=== PATIENT | male | born 1965 | race Caucasian/White ===

== ENCOUNTER 2016-11-09 20:22 | Emergency (ER) | payer MEDICAID ==
[2016-11-09] MEDS ORDERED: SODIUM CHLORIDE 0.9% 1,000 ML IV STA (21:10)
[2016-11-09] MEDS ORDERED: LORazepam 2 MG/ML SYRINGE IVP STA (21:10)
[2016-11-09] MEDS ORDERED: ONDANSETRON 4 MG/2 ML VIAL IVP STA (21:10)
[2016-11-09] MEDS ORDERED: ONDANSETRON 4 MG/2 ML VIAL ONE (21:28)
[2016-11-09] MEDS ORDERED: LORazepam 2 MG/ML SYRINGE ONE (21:28)
[2016-11-09] MEDS ORDERED: ONDANSETRON ODT 4 MG Prepack 2 TL STA (23:17)
[2016-11-09] MEDS ORDERED: ONDANSETRON ODT 4 MG Prepack 2 TL ONE (23:23)
== END 2016-11-09 23:39 | disposition home or self-care (01) ==
DX: J40 Bronchitis, not specified as acute or chronic (principal); R42 Dizziness and giddiness; I10 Essential (primary) hypertension; Z87.891 Personal history of nicotine dependence
CPT/HCPCS: 36415; 71020; 80053; 83690; 84484; 85025; 93005; 93010; 96374; 96375; 99284; J2060

== ENCOUNTER 2016-11-10 22:10 | Emergency (ER) | payer MEDICAID ==
[2016-11-11] MEDS ORDERED: SODIUM CHLORIDE 0.9% 1,000 ML IV ONE ×2 (01:28→03:25)
[2016-11-11] MEDS ORDERED: DEXAMETHASONE 10 MG/ML VIAL IVP STA (01:28)
[2016-11-11] MEDS ORDERED: cefTRIAXone 1 GM in SODIUM CHLORIDE 0.9% MINIBAG 100 ML IV STA (01:28)
[2016-11-11] MEDS ORDERED: IPRATROPIUM/ALBUTEROL 3 ML NEB INH STA (01:34)
[2016-11-11] MEDS ORDERED: DEXAMETHASONE 10 MG/ML VIAL ONE (01:51)
[2016-11-11] MEDS ORDERED: cefTRIAXone 1 GM VIAL ONE (01:51)
[2016-11-11] MEDS ORDERED: IPRATROPIUM/ALBUTEROL 3 ML NEB INH ONE (02:10)
[2016-11-11] MEDS ORDERED: POTASSIUM BICARB 25 MEQ TABLET PO STA (03:20)
[2016-11-11] MEDS ORDERED: POTASSIUM BICARB 25 MEQ TABLET PO ONE (03:45)
== END 2016-11-11 05:05 | disposition home or self-care (01) ==
DX: E86.0 Dehydration (principal); H66.002 Acute suppurative otitis media without spontaneous rupture of ear drum, left ear; I10 Essential (primary) hypertension; F17.200 Nicotine dependence, unspecified, uncomplicated
CPT/HCPCS: 36415; 80053; 81003; 83690; 84484; 85025; 94640; 96365; 96375; 99284; A9270; J7620

== ENCOUNTER 2018-02-20 17:14 | Emergency (ER) | payer MEDICAID ==
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
[2018-02-20] MEDS ORDERED: BACITRACIN OINT TOP ONE (18:27)
[2018-02-20] MEDS ORDERED: BACITRACIN OINT TOP STA (18:59)
[2018-02-20 19:08] VITALS: BP 164/84
== END 2018-02-20 19:06 | disposition home or self-care (01) ==
LOC: ED 17:14
DX: S01.81XA Laceration without foreign body of other part of head, initial encounter (principal); S40.212A Abrasion of left shoulder, initial encounter; S50.312A Abrasion of left elbow, initial encounter; S80.212A Abrasion, left knee, initial encounter; W05.1XXA Fall from non-moving nonmotorized scooter, initial encounter; Y92.410 Unspecified street and highway as the place of occurrence of the external cause; I10 Essential (primary) hypertension; F17.200 Nicotine dependence, unspecified, uncomplicated
CPT/HCPCS: 12011; 99283; A9270

== ENCOUNTER 2018-06-04 20:30 | Emergency (ER) | payer MEDICAID ==
--- NOTE | 2018-06-04 21:39 | ED Physician Documentation ---
PD HPI LOWER EXT INJURY - Stated complaint Stated Complaint: RT KNEE PX - Chief complaint Chief Complaint: Ext Problem - History obtained from History obtained from: Patient - History of Present Illness PD HPI LOW EXT INJURY LOCATION: Right, Knee (Without a specific injury had 5 days of increasing medial right knee pain. He has a remote history of a laceration there. He feels swelling on the medial part of the right knee.) Review of Systems Constitutional: reports: Reviewed and negative Cardiac: reports: Reviewed and negative Respiratory: reports: Reviewed and negative PD PAST MEDICAL HISTORY - Past Medical History Cardiovascular: Hypertension Psych: Anxiety - Past Surgical History Past Surgical History: Yes HEENT: Tonsil/Adenoidectomy - Present Medications Home Medications: Ambulatory Orders Medication Instructions Recorded Confirmed Bupropion HCl [Wellbutrin] 25 mg PO DAILY 03/10/15 09/05/16 Lisinopril 0 mg 09/05/16 Oxycodone HCl/Acetaminophen 1 - 2 tab PO Q4H PRN #15 tablet 09/05/16 [Percocet 5-325 mg Tablet] LORazepam [Ativan] 0.5 mg PO Q6H PRN #15 tablet 11/09/16 Azithromycin [Zithromax] 250 mg PO DAILY #6 tablet 11/11/16 Oxycodone HCl/Acetaminophen 1 - 2 tab PO Q4H PRN #7 tablet 02/20/18 [Percocet 5-325 mg Tablet] - Allergies Allergies/Adverse Reactions: Allergies Allergy/AdvReac Type Severity Reaction Status Date / Time Penicillins Allergy Unknown Verified 06/04/18 20:40 acetaminophen [From Vicodin] AdvReac Nausea Verified 06/04/18 20:40 hydrocodone bitartrate * AdvReac Nausea Verified 06/04/18 20:40 [From Vicodin] - Social History Does the pt smoke?: Yes Smoking Status: Current every day smoker Does the pt drink ETOH?: No Does the pt have substance abuse?: No - Immunizations Immunizations are current?: Yes - POLST Patient has POLST: No PD ED PE NORMAL - Vitals Vital signs reviewed: Yes - General General: Alert and oriented X 3, No acute distress - Extremities Extremities: Other (Tender with slight swelling of the medial knee, good range of motion. No warmth or redness. The anterior and lateral part of the knee are nontender.) - Neuro Neuro: Alert and oriented X 3, Normal speech Results - Vitals Vitals: Vital Signs - 24 hr 06/04/18 20:36 Temperature 36.2 C L Heart Rate 82 Respiratory 16 Rate Blood Pressure 155/84 H O2 Saturation 95 Oxygen O2 Source Room air - Rads (name of study) R knee XR Radiology: EMP read contemporaneously (Chronic subcutaneous foreign body without acute issue.) PD MEDICAL DECISION MAKING - Sepsis Event Vital Signs: Vital Signs - 24 hr 06/04/18 20:36 Temperature 36.2 C L Heart Rate 82 Respiratory 16 Rate Blood Pressure 155/84 H O2 Saturation 95 Oxygen O2 Source Room air Departure - Departure Disposition: Home, Self Care Clinical Impression: Internal derangement of right knee Condition: Good Record reviewed to determine appropriate education?: Yes Instructions: ED Meniscal Injury Knee Poss Follow-Up: [facility] [Provider Group] - Within 1 week Comments: Your blood pressure was elevated today on check into the emergency department. This does not mean that you have hypertension, it is a common phenomenon to come to the emergency department and have elevated blood pressure. I recommend that you see your primary care physician within the week to have it rechecked when you are feeling better.
--- NOTE | 2018-06-04 22:01 | XRAY Report ---
Procedure Date: 06/04/2018 Accession Number: [id number] / [id number] Procedure: XR - Knee 4 View RT CPT Code: FULL RESULT: EXAM: RIGHT KNEE RADIOGRAPHY EXAM DATE: 06/04/2018 09:54 PM. CLINICAL HISTORY: Knee pain medial. No known injury. COMPARISON: None. TECHNIQUE: 4 views. FINDINGS: Bones: Normal. No fractures or bone lesions. Joints: Normal. No effusion. No subluxations. Soft Tissues: 2.5 mm slightly irregular oval metallic density injecting over the subcutaneous aspect of the proximal right castaneda without associated soft tissue swelling. IMPRESSION: 1. Chronic 2.5 mm metallic subcutaneous foreign body over the proximal right castaneda. 2. Otherwise negative right knee series. [facility]
[2018-06-04 22:31] VITALS: BP 151/86
== END 2018-06-04 22:31 | disposition home or self-care (01) ==
LOC: ED 20:30
DX: M23.91 Unspecified internal derangement of right knee (principal); I10 Essential (primary) hypertension
CPT/HCPCS: 99283

== ENCOUNTER 2018-07-21 12:01 | Outpatient (CLI) | payer MEDICAID ==
--- NOTE | 2018-07-21 16:15 | MRI Report ---
Reason: PAIN IN RIGHT KNEE Procedure Date: 07/21/2018 Accession Number: [id number] / [id number] Procedure: MRI - Knee RT W/O CPT Code: FULL RESULT: EXAM: RIGHT KNEE MRI WITHOUT CONTRAST EXAM DATE: 07/21/2018 12:45 PM. CLINICAL HISTORY: Pain in right knee. COMPARISON: None. TECHNIQUE: Multiplanar, multisequence T1-weighted and fluid-sensitive sequences of the knee without contrast. Other: None. FINDINGS: Bones: No fractures or subluxations. No marrow edema. No bone lesions. Articular Cartilage: Unremarkable. Medial Meniscus: Undersurface degenerative tear mid body posterior medial meniscus. No displaced fragment. Associated fairly large multilocular parameniscal cyst. This parameniscal cyst is 3.2 x 0.9 cm transversely extending for a cephalocaudal length of 4.5 cm. Lateral Meniscus: The lateral meniscus is intact. Cruciate Ligaments: The anterior and posterior cruciate ligaments are intact. Collateral Ligaments: The medial collateral and lateral collateral ligamentous structures are intact. Tendons: The quadriceps, patellar, semimembranosus, and popliteus tendons are unremarkable. Musculature: No edema or fatty atrophy. Other: Small joint effusion. No popliteal cyst. No loose bodies. The medial and lateral retinacula are intact. There is some edema in Hoffa's fat pad and also in the prepatellar soft tissues of the knee. IMPRESSION: 1. Undersurface degenerative tear mid body posterior medial meniscus with a fairly large associated parameniscal cyst measuring 3.2 x 0.9 x 4.5 cm. 2. Cruciates, collaterals, and lateral meniscus appears unremarkable. 3. Bones and articular surfaces are also normal. 4. Some edema and swelling is seen in the anterior soft tissues of the knee and also in Hoffa's fat pad. [facility] MUSCULOSKELETAL RADIOLOGY SECTION
== END 2018-07-21 12:02 | disposition home or self-care (01) ==
LOC: DI 12:01
PROVIDERS: ATTEND Orthopaedic Surgery Sports Medicine
DX: S83.241A Other tear of medial meniscus, current injury, right knee, initial encounter (principal); M25.861 Other specified joint disorders, right knee; M25.461 Effusion, right knee

== ENCOUNTER 2019-04-08 19:14 | Outpatient (CLI) | payer MEDICAID | END 2019-04-08 19:15 | disposition critical access hospital (66) | LOC: EMS 19:14 | PROVIDERS: ATTEND Surgery | DX: R07.9 Chest pain, unspecified (principal); R20.2 Paresthesia of skin; R23.2 Flushing | CPT/HCPCS: A0425; A0429; A0999 ==

== ENCOUNTER 2019-04-08 19:37 | Emergency (ER) | payer MEDICAID ==
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
[2019-04-08 20:29] LABS: BASOPHILS # (AUTO) 0.1 10^3/uL (0.0-0.1); BASOPHILS % (AUTO) 0.4 %; EOSINOPHILS # (AUTO) 0.3 10^3/uL (0.0-0.7); EOSINOPHILS % (AUTO) 2.5 %; HGB - HEMOGLOBIN 16.5 g/dL (14.0-18.0); LYMPHOCYTES % (AUTO) 14.6 %; MEAN CORPUSCULAR HEMOGLOBIN 28.7 pg (27.0-31.0); MEAN CORPUSCULAR HGB CONC 32.4 g/dL (32.0-36.0); MEAN CORPUSCULAR VOLUME 88.9 fL (80.0-94.0); MEAN PLATELET VOLUME 9.5 fL (7.4-11.4); MONOCYTES # (AUTO) 1.6 10^3/uL (0.0-1.0); MONOCYTES % (AUTO) 11.6 %; NEUTROPHILS # (AUTO) 9.6 10^3/uL (1.5-6.6); NEUTROPHILS % (AUTO) 70.4 %; PLT - PLATELET COUNT 403 10^3/uL (130-450); RED BLOOD COUNT 5.74 10^6/uL (4.70-6.10); RED CELL DISTRIBUTION WIDTH 15.4 % (12.0-15.0); WHITE BLOOD COUNT 13.6 x10^3/uL (4.8-10.8)
[2019-04-08 20:44] LABS: ALBUMIN 4.4 g/dL (3.2-5.5); ALBUMIN/GLOBULIN RATIO 1.4 (1.0-2.2); BILIRUBIN,TOTAL 1.3 mg/dL (0.2-1.0); CALCIUM 9.1 mg/dL (8.5-10.3); CREATININE 1.2 mg/dL (0.6-1.2); TOTAL PROTEIN 7.6 g/dL (6.7-8.2)
[2019-04-08 21:10] LABS: DIFFERENTIAL COMMENT MANUAL=AUTO DIFF; PLATELET ESTIMATE, MANUAL NORMAL (130-450,000) (NORMAL); PLATELET MORPHOLOGY NORMAL APPEARANCE (NORMAL); RBC MORPHOLOGY (MULTIPLE) NORMAL APPEARANCE (NORMAL)
[2019-04-08 21:28] VITALS: BP 142/72
== END 2019-04-08 21:30 | disposition home or self-care (01) ==
LOC: EDUNIT# → EDBD → ED 19:37
DX: R07.89 Other chest pain (principal); D72.829 Elevated white blood cell count, unspecified; R94.4 Abnormal results of kidney function studies; I10 Essential (primary) hypertension; F41.9 Anxiety disorder, unspecified; F17.200 Nicotine dependence, unspecified, uncomplicated
CPT/HCPCS: 36415; 80053; 83690; 84484; 85025; 93005; 99283

== ENCOUNTER 2023-11-18 02:34 | Outpatient (CLI) | payer MEDICAID | END 2023-11-18 23:59 | disposition critical access hospital (66) | LOC: EMS 02:34 | DX: R45.1 Restlessness and agitation (principal); R00.0 Tachycardia, unspecified | CPT/HCPCS: A0425; A0429; A0999 ==